=== PATIENT | male | born 1995 | race Two or more races ===

== ENCOUNTER 2023-11-17 19:40 | Emergency (ER) | payer OTHER, SELFPAY ==
[2023-11-17 19:45] VITALS: BP 139/79; PULSE 90; RESP 16; TEMP 37.2; O2SAT 98; BMI 33.5
--- NOTE | 2023-11-17 20:28 | ED.WOUNDLAC ---
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 He unfortunately bumped heads with a fellow boxer tonight he will doing approximately 4 cm laceration in the left eyebrow. He did not lose consciousness and had no neurologic symptoms. He was able to achieve hemostasis and 0 came to the emergency room. He neurologically is no complaints. Related Data Home Medications ?Medication ?Instructions ?Recorded ?Confirmed No Known Home Medications 11/17/23 11/17/23 Allergies Allergy/AdvReac Type Severity Reaction Status Date / Time No Known Drug Allergies Allergy Verified 11/17/23 19:49 Review of Systems Status of ROS: Reports: 10 or more systems reviewed and unremarkable except as noted in History and below Exam Narrative: Exam Narrative: EXAM GENERAL: Patient appears comfortable and well. EYES: No scleral icterus. LYMPH: No supraclavicular or cervical lymphadenopathy. SKIN: Laceration noted left eyebrow as described above. EXT: No dependent lower extremity pedal edema. HEART: Regular rate and rhythm with no murmurs, rubs, or gallops. LUNGS: Clear to auscultation bilaterally with no crackles or wheezes. ABD: Soft, non tender, non distended. PSYCH: Good eye contact, speech is not pressured. Const: Vital Signs, click to edit/add: Vital Signs - 24 hr 11/17/23 19:45 Temperature 99 F Pulse Rate [Pulse Oximeter] 90 Respiratory Rate 16 Blood Pressure [Ri ght Upper Arm] 139/79 Pulse Oximetry 98 Oxygen Delivery Me thod Room Air Course Course ED Course: Patient seen and examined. Wound aggressively irrigated. Vital Signs Vital signs: Initial Vital Signs Temperature 99 F 11/17/23 19:45 Temperature Source Temporal Artery Scan 11/17/23 19:45 Pulse Rate 90 11/17/23 19:45 Respiratory Rate 16 11/17/23 19:45 Blood Pressure 139/79 11/17/23 19:45 Blood Pressure Mean 99 11/17/23 19:45 Blood Pressure Position Sitting 11/17/23 19:45 Pulse Oximetry 98 11/17/23 19:45 Oxygen Delivery Method Room Air 11/17/23 19:45 Vital Signs Temperature 99 F 11/17/23 19:45 Pulse Rate 90 11/17/23 19:45 Respiratory Rate 16 11/17/23 19:45 Blood Pressure 139/79 11/17/23 19:45 Pulse Oximetry 98 11/17/23 19:45 Oxygen Delivery Method Room Air 11/17/23 19:45 Temperature 99 F 11/17/23 19:45 Pulse Rate 90 11/17/23 19:45 Respiratory Rate 16 11/17/23 19:45 Blood Pressure 139/79 11/17/23 19:45 Pulse Oximetry 98 11/17/23 19:45 Oxygen Delivery Method Room Air 11/17/23 19:45 MDM - Wound/Laceration MDM Narrative Medical decision making narrative: Patient is a 28-year-old gentleman in today with laceration his left eyebrow. No neurologic symptoms. We did update his tetanus shot. I did clean the wound and provide local anesthesia with 1% lidocaine with epinephrine. I then closed the defect with 5 running 3-0 Ethilon sutures. Patient was instructed on wound care of sutures removed in 1 week. Discharge Plan Discharge Clinical Impression: Laceration Patient Disposition: Home, Self-Care Condition: Stable Instructions: Laceration (ED) Additional Instructions: Daily dressing changes Ice Tylenol Motrin Follow-up for suture removal in 1 week. Activity Level: No Restrictions Discharge Diet: Regular Prescriptions: No Action No Known Home Medications Stand Alone Forms: MyHealth Info Instructions
[2023-11-17] MEDS: TETANUS/DIPHTH/PERTUSSIS 0.5 ML SYRINGE IM (20:40)
== END 2023-11-17 21:03 | disposition home or self-care (01) ==
LOC: ED 20:55
PROVIDERS: Emergency Provider Internal Medicine
DX: S01.112A Laceration without foreign body of left eyelid and periocular area, initial encounter (principal); W51.XXXA Accidental striking against or bumped into by another person, initial encounter; Y93.71 Activity, boxing
CPT/HCPCS: 12013; 90471; 90715; 99283